=== PATIENT | female | born 2005 | race Caucasian/White ===

== ENCOUNTER 2023-08-17 15:22 | Inpatient (IN) | payer BC, MEDICAID ==
[~2023-08-17] VITALS: Ht 162.6 cm; Wt 55.0 kg
[2023-08-17 17:26] LABS: ALCOHOL, URINE DRUG SCREEN POSITIVE (NEGATIVE); AMPHET/METH SCREEN,URINE NEGATIVE (NEGATIVE); BARBITURATE SCREEN, URINE NEGATIVE (NEGATIVE); BENZODIAZEPINES SCREEN,URINE NEGATIVE (NEGATIVE); CANNABINOID SCREEN,URINE NEGATIVE (NEGATIVE); COCAINE SCREEN,URINE NEGATIVE (NEGATIVE); METHADONE SCREEN, URINE NEGATIVE (NEGATIVE); OPIATE SCREEN,URINE NEGATIVE (NEGATIVE); PHENCYCLIDINE SCREEN,URINE NEGATIVE (NEGATIVE)
[2023-08-17] MEDS: HALOPERIDOL LACTATE 5 MG/ML VIAL IM ONE (17:31)
[2023-08-17] MEDS: DiphenhydrAMINE HCL 50 MG/ML VIAL IM ONE (17:31)
[2023-08-17] MEDS: LORazepam 2 MG/ML VIAL IM ONE (17:32)
[2023-08-17 17:53] LABS: COVID AG,FIA SOURCE NASAL SWAB
[2023-08-17] MEDS: BACITRACIN 0.9 GM PACKET OINTMENT TP ONE (18:21)
[2023-08-17 18:22] LABS: SARS-COV2 (COVID) ANTIGEN,FIA Negative (Negative)
[2023-08-17] MEDS: PERTUSS(ACELL),DIPH,TET/PF 0.5 ML SYRINGE [ADULT] IM. ONE (18:22)
[2023-08-17 18:23] LABS: BASOPHILS % (AUTO) 0.4 % (0.0-2.0); EOSINOPHILS % (AUTO) 0.4 % (1.0-6.0); HEMATOCRIT 39.4 % (36-46); HEMOGLOBIN 13.2 g/dL (12.0-16.0); LYMPHOCYTES # (AUTO) 1.3 K/uL (1.0-4.8); LYMPHOCYTES % (AUTO) 12.9 % (22.0-44.0); MEAN CORPUSCULAR HEMOGLOBIN 30.9 pg (26.0-34.0); MEAN CORPUSCULAR HGB CONC 33.6 G/dL (31.0-37.0); MEAN CORPUSCULAR VOLUME 92 fL (80-100); MONOCYTES # (AUTO) 0.5 K/uL (0.1-1.0); MONOCYTES % (AUTO) 5.3 % (2.0-9.0); NEUTROPHILS # (AUTO) 8.2 K/uL (1.8-7.7); PLATELET COUNT (AUTO) 262 K/uL (150-450); RED BLOOD CELL COUNT(AUTO) 4.27 MIL/uL (4.00-5.20); WHITE BLOOD COUNT (AUTO) 10.2 K/uL (4.5-11.0)
[2023-08-17 18:28] LABS: ANION GAP 18 mmol/L (8-16); CALCIUM, TOTAL 8.7 mg/dL (8.8-10.5); CARBON DIOXIDE 20 mmol/L (22-29); CHLORIDE 105 mmol/L (98-107); CREATININE 0.95 mg/dL (0.60-1.30); GLOMERULAR FILTR. RATE CALC > 60 mL/min (>60); GLUCOSE,RANDOM 78 mg/dL (70-110); POTASSIUM 3.1 mmol/L (3.5-5.1); SODIUM SERUM 143 mmol/L (136-145); UREA NITROGEN, BLOOD 7 mg/dL (7-18)
[2023-08-17 18:34] LABS: ALANINE AMINOTRANSFERASE 18 U/L (12-78); ALKALINE PHOSPHATASE 85 U/L (46-116); ASPARTATE AMINOTRANSFERASE 25 U/L (15-37); BILIRUBIN,TOTAL 0.4 mg/dL (0.1-1.0); TOTAL PROTEIN, SERUM 7.6 g/dL (6.4-8.2)
[2023-08-17 18:36] LABS: ALCOHOL, BLOOD (SERUM) 182 mg/dL (0-10)
[2023-08-17] MEDS ORDERED: HALOPERIDOL 5 MG TABLET PO PRN (20:30)
[2023-08-17] MEDS ORDERED: ZOLPIDEM TARTRATE 10 MG TABLET PO PRN (20:30)
[2023-08-18] MEDS: POTASSIUM CHLORIDE 20 MEQ ER TABLET PO ONE (03:29)
[2023-08-18] MEDS ORDERED: LURA80TA2 PO (13:38)
[2023-08-18] MEDS ORDERED: TRAZ-257 PO (13:38)
[2023-08-18] MEDS ORDERED: BUPR-344 PO (13:38)
[2023-08-18] MEDS ORDERED: LAMO-24 PO (13:38)
[2023-08-18] MEDS ORDERED: FLUO20SO24 PO (13:38)
[2023-08-20 17:00] VITALS: BP 128/78; PULSE 98; RESP 18; TEMP 97.8
[2023-08-20] MEDS ORDERED: BuPROPion HCL 150 MG SR TABLET PO SCH (17:00)
[2023-08-20] MEDS ORDERED: LamoTRIgine 100 MG TABLET PO SCH (17:00)
[2023-08-20] MEDS ORDERED: BUPR-49 PO (17:09)
[2023-08-20] MEDS ORDERED: FLUO40CA PO (17:09)
[2023-08-20] MEDS ORDERED: NORE0.3513 PO (17:09)
[2023-08-20] MEDS ORDERED: LURASIDONE HCL 80 MG TABLET PO SCH (17:30)
[2023-08-20] MEDS: LORazepam 2 MG TABLET PO PRN (19:44)
[2023-08-20] MEDS: TraZODone HCL 100 MG TABLET PO SCH (20:45)
[2023-08-20] MEDS: LamoTRIgine 100 MG TABLET PO SCH (20:45)
[2023-08-20 22:25] VITALS: BP 118/73; PULSE 69; RESP 18; TEMP 97.6
[2023-08-21 09:25] VITALS: BP 94/60; PULSE 61; RESP 18; TEMP 98
[2023-08-21] MEDS: BuPROPion HCL 150 MG SR TABLET PO SCH (10:19)
[2023-08-21] MEDS: FLUoxetine HCL 20 MG CAPSULE PO SCH (10:20)
[2023-08-21] MEDS: LURASIDONE HCL 80 MG TABLET PO SCH (17:16)
[2023-08-21 21:21] VITALS: BP 93/58; PULSE 67; RESP 18; TEMP 97.3
[2023-08-22] MEDS ORDERED: FLUO20CA36 PO (10:35)
[2023-08-22] MEDS ORDERED: TRAZ-257 PO (10:35)
[2023-08-22] MEDS ORDERED: LURA80TA4 PO (10:35)
[2023-08-22] MEDS ORDERED: LAMO-24 PO (10:35)
[2023-08-22] MEDS ORDERED: BUPR-113 PO (10:35)
[2023-08-22 17:02] VITALS: BP 110/68; PULSE 108; RESP 18; TEMP 97
== END 2023-08-22 14:45 | disposition home or self-care (01) | DRG 885 ==
LOC: EMS 15:22 → 3EI 08-20 10:31
PROVIDERS: ADMIT Psychiatry & Neurology Psychiatry; ATTEND Psychiatry & Neurology Psychiatry
PROC: 0HQEXZZ Repair Left Lower Arm Skin, External Approach (ICD-10-PCS; principal; 2023-08-17)
DX: F33.2 Major depressive disorder, recurrent severe without psychotic features (principal); R45.851 Suicidal ideations; Z20.822 Contact with and (suspected) exposure to COVID-19; S71.112A Laceration without foreign body, left thigh, initial encounter; S71.111A Laceration without foreign body, right thigh, initial encounter; S11.91XA Laceration without foreign body of unspecified part of neck, initial encounter; S61.512A Laceration without foreign body of left wrist, initial encounter; X78.1XXA Intentional self-harm by knife, initial encounter; Y93.89 Activity, other specified; Y92.89 Other specified places as the place of occurrence of the external cause; Y99.8 Other external cause status; Z78.1 Physical restraint status
CPT/HCPCS: 80053; 80307; 84703; 85025; 90715; 99285; G0480; J1200; J1630; J2060